=== PATIENT | female | born 2000 | race Caucasian/White ===

== ENCOUNTER 2019-04-24 00:43 | Outpatient (CLI) | payer MEDICAID ==
[~2019-04-24] VITALS: Ht 165.1 cm; Wt 82.7 kg
[2019-04-24] MEDS ORDERED: PREN1TAB60 PO (01:01)
[2019-04-24 01:18] VITALS: BP 132/77
== END 2019-04-24 01:20 | disposition home or self-care (01) ==
LOC: LDOP 00:43
PROVIDERS: ATTEND Obstetrics & Gynecology
DX: O62.9 Abnormality of forces of labor, unspecified (principal); Z3A.38 38 weeks gestation of pregnancy
CPT/HCPCS: 59025; 99201; G0463

== ENCOUNTER 2019-05-04 05:18 | Inpatient (IN) | payer MEDICAID ==
[~2019-05-04] VITALS: Ht 167.6 cm; Wt 83.0 kg
[~2019-05-04 05:18] MED LIST: PREN1TAB60 PO
[2019-05-04] MEDS ORDERED: OXYTOCIN 30U/ 0.9% NaCL 500ML 500 ML IV PRN (05:40)
[2019-05-04] MEDS ORDERED: D5%-LACTATED RINGERS 1,000 ML IV SCH (05:40)
[2019-05-04] MEDS ORDERED: OXYTOCIN 30U/ 0.9% NaCL 500ML 500 ML IV ONE (05:40)
[2019-05-04] MEDS ORDERED: MISOPROSTOL 25 MCG TABLET ONE (05:45)
[2019-05-04] MEDS ORDERED: OXYTOCIN 30U/ 0.9% NaCL 500ML 500 ML ONE ×3 (05:45→20:29)
[2019-05-04] MEDS ORDERED: FENTANYL PF 100 MCG/2ML IV PRN (06:00)
[2019-05-04] MEDS ORDERED: MISOPROSTOL 25 MCG TABLET VG PRN (06:00)
[2019-05-04] MEDS ORDERED: CALCIUM CARBONATE 500 MG TAB.CHEW PO PRN (06:00)
[2019-05-04] MEDS ORDERED: ONDANSETRON 2MG/ML, 2ML IVPush PRN (06:00)
[2019-05-04] MEDS ORDERED: TERBUTALINE 1 MG/ML, 1ML IVPush PRN (06:00)
[2019-05-04] MEDS ORDERED: TERBUTALINE 1 MG/ML, 1ML SQ PRN (06:00)
[2019-05-04] MEDS ORDERED: FENTANYL PF 100 MCG/2ML IVPush PRN (06:00)
[2019-05-04] MEDS: LACTATED RINGERS 1,000 ML IV SCH ×2 (06:13→12:25)
[2019-05-04] MEDS ORDERED: NEWBORN KIT ONE (06:22)
[2019-05-04 06:24] LABS: BASOPHILS # (AUTO) 0.04 x10^3/uL (0-0.3); BASOPHILS % (AUTO) 1 % (0-1); EOSINOPHILS # (AUTO) 0.07 x10^3/uL (0-0.8); EOSINOPHILS % (AUTO) 1 % (1-7); LYMPHOCYTES # (AUTO) 1.72 x10^3/uL (1-6.1); LYMPHOCYTES % (AUTO) 20 % (22-44); MD NO; MEAN CORPUSCULAR HEMOGLOBIN 30.3 pg (27.0-34.8); MEAN CORPUSCULAR HGB CONC 33.6 g/dL (32.4-35.8); MEAN CORPUSCULAR VOLUME 90.4 fL (80-100); MEAN PLATELET VOLUME 11.8 fL (7.4-10.4); MONOCYTES # (AUTO) 0.68 x10^3/uL (0-1.4); MONOCYTES % (AUTO) 8 % (2-9); NEUTROPHILS # (AUTO) 5.93 x10^3/uL (1.8-8.0); NEUTROPHILS % (AUTO) 70 % (42-75); PLATELET COUNT 158 x10^3/uL (130-400); RED BLOOD COUNT 3.92 x10^6/uL (3.82-5.3); RED CELL DISTRIBUTION WIDTH 13.2 % (9.6-15.2)
[2019-05-04] MEDS ORDERED: FENTANYL/BUPIV./NS/PF 250 ML EPIDCONT SCH ×2 (11:58→13:14)
[2019-05-04] MEDS ORDERED: LACTATED RINGERS 1,000 ML IVBOLUS PRN ×2 (12:00→13:30)
[2019-05-04] MEDS ORDERED: FENTANYL PF 100 MCG/2ML ONE (12:01)
[2019-05-04] MEDS ORDERED: EPHEDRINE 50 MG/ML, 1ML ONE (12:29)
[2019-05-04] MEDS ORDERED: TERBUTALINE 1 MG/ML, 1ML ONE (12:29)
[2019-05-04] MEDS ORDERED: FENTANYL PF 500 MCG, BUPIVACAINE/PF 0.5%, 30ML 62.5 ML in SODIUM CHLORIDE 0.9% 177.5 ML EPIDCONT SCH (12:30)
[2019-05-04] MEDS ORDERED: BUPIVACAINE 0.25% ONE (12:52)
[2019-05-04] MEDS ORDERED: LACTATED RINGERS 1,000 ML IV SCH (13:14)
[2019-05-04] MEDS ORDERED: EPHEDRINE 50 MG/ML, 1ML IVPush PRN (13:30)
[2019-05-04] MEDS: OXYTOCIN 30U/ 0.9% NaCL 500ML 500 ML IV SCH ×2 (19:07→20:39)
[2019-05-04] MEDS ORDERED: SIMETHICONE 80 MG CHEW TAB PO PRN (19:30)
[2019-05-04] MEDS ORDERED: ACETAMINOPHEN 325 MG TABLET PO PRN (19:30)
[2019-05-04] MEDS ORDERED: IBUPROFEN 600 MG TABLET PO PRN (19:30)
[2019-05-04] MEDS ORDERED: ONDANSETRON 2MG/ML, 2ML IV PRN (19:30)
[2019-05-04] MEDS ORDERED: DOCUSATE 100 MG CAPSULE PO PRN (19:30)
[2019-05-04] MEDS ORDERED: OXYcodone/APAP 5/325MG TABLET PO PRN ×2 (19:30)
[2019-05-04] MEDS ORDERED: MISOPROSTOL 200 MCG TABLET PR PRN (19:30)
[2019-05-04] MEDS ORDERED: IBUPROFEN 600 MG TABLET ONE (20:37)
[2019-05-04 21:35] VITALS: BP 139/76
[2019-05-05 01:30] VITALS: BP 111/68
[2019-05-05 04:25] VITALS: BP 110/69
[2019-05-05 06:18] LABS: MEAN CORPUSCULAR HEMOGLOBIN 30.5 pg (27.0-34.8); MEAN CORPUSCULAR HGB CONC 33.2 g/dL (32.4-35.8); MEAN CORPUSCULAR VOLUME 91.9 fL (80-100); MEAN PLATELET VOLUME 11.4 fL (7.4-10.4); PLATELET COUNT 161 x10^3/uL (130-400); RED BLOOD COUNT 3.72 x10^6/uL (3.82-5.3); RED CELL DISTRIBUTION WIDTH 13.3 % (9.6-15.2)
[2019-05-05 06:37] LABS: BASOPHILS # (AUTO) 0.02 x10^3/uL (0-0.3); BASOPHILS % (AUTO) 0 % (0-1); EOSINOPHILS # (AUTO) 0.05 x10^3/uL (0-0.8); EOSINOPHILS % (AUTO) 0 % (1-7); LYMPHOCYTES # (AUTO) 1.74 x10^3/uL (1-6.1); LYMPHOCYTES % (AUTO) 10 % (22-44); MD SCAN; MONOCYTES # (AUTO) 1.48 x10^3/uL (0-1.4); MONOCYTES % (AUTO) 9 % (2-9); NEUTROPHILS # (AUTO) 13.59 x10^3/uL (1.8-8.0); NEUTROPHILS % (AUTO) 81 % (42-75)
[2019-05-05 09:00] VITALS: BP 125/88
[2019-05-05] MEDS ORDERED: PRENATAL VIT/IRON/FA 1 EACH TABLET PO SCH (09:00)
[2019-05-05 11:58] VITALS: BP 109/67
[2019-05-05] MEDS ORDERED: DIPH,PERTUSS(ACELL),TET VAC/PF NC IM-VACC ONE ×3 (12:00→17:04)
[2019-05-05] MEDS ORDERED: IBUP-1222 PO (15:30)
== END 2019-05-05 19:40 | disposition home or self-care (01) | DRG 807 ==
LOC: LDIP 05:37 → 2NW 21:20
PROVIDERS: ADMIT Obstetrics & Gynecology; ATTEND Obstetrics & Gynecology
PROC: 10E0XZZ Delivery of Products of Conception, External Approach (ICD-10-PCS; principal; 2019-05-04)
PROC: 3E0R3BZ Introduction of Anesthetic Agent into Spinal Canal, Percutaneous Approach (ICD-10-PCS; 2019-05-04)
PROC: 00HU33Z Insertion of Infusion Device into Spinal Canal, Percutaneous Approach (ICD-10-PCS; 2019-05-04)
PROC: 0HQ9XZZ Repair Perineum Skin, External Approach (ICD-10-PCS; 2019-05-04)
PROC: 3E033VJ Introduction of Other Hormone into Peripheral Vein, Percutaneous Approach (ICD-10-PCS; 2019-05-04)
DX: O69.81X0 Labor and delivery complicated by cord around neck, without compression, not applicable or unspecified (principal); Z37.0 Single live birth; Z3A.39 39 weeks gestation of pregnancy; O70.0 First degree perineal laceration during delivery
CPT/HCPCS: 36415; 85025; 86592; 86850; 86900; 90715; G0378; J3010; J2590; J7120

== ENCOUNTER 2020-02-22 20:32 | Emergency (ER) | payer MEDICAID ==
[~2020-02-22] VITALS: Ht 167.6 cm; Wt 66.4 kg
[~2020-02-22 20:32] MED LIST changes: +IBUP-1222 PO
[2020-02-22] MEDS ORDERED: ONDANSETRON ODT 4 MG PO ONE (21:30)
--- NOTE | 2020-02-22 21:35 | NUR ---
PATIENT RESTING QUIETLY ON STRETCHER, NAD, NO NEEDS CURRENTLY, EDUCATED FORENSICS ANALYST FOOTE USE, WILL CONTINUE TO MONITOR.
[2020-02-22 21:46] LABS: BASOPHILS % (AUTO) 1 % (0-1); EOSINOPHILS % (AUTO) 4 % (1-7); LYMPHOCYTES % (AUTO) 29 % (22-44); MEAN CORPUSCULAR HEMOGLOBIN 29.5 pg (27.0-34.8); MEAN CORPUSCULAR HGB CONC 33.4 g/dL (32.4-35.8); MEAN PLATELET VOLUME 11.8 fL (7.4-10.4); MONOCYTES % (AUTO) 9 % (2-9); NEUTROPHILS % (AUTO) 57 % (42-75); PLATELET COUNT 152 x10^3/uL (130-400); RED BLOOD COUNT 4.05 x10^6/uL (3.82-5.3)
[2020-02-22 21:47] LABS: MD NO
[2020-02-22] MEDS ORDERED: ONDANSETRON ODT 4 MG ONE (21:49)
[2020-02-22 21:58] LABS: ALANINE AMINOTRANSFERASE 14 U/L (12-78); ALBUMIN 3.8 g/dL (3.4-5.0); ANION GAP 5 mmol/L (5-15); CALCIUM 8.7 mg/dL (8.5-10.1); CHLORIDE 110 mmol/L (98-107); CREATININE 0.82 mg/dL (0.55-1.02)
[2020-02-22 22:02] LABS: ALKALINE PHOSPHATASE 67 U/L (45-117); BILIRUBIN,TOTAL 0.4 mg/dL (0.2-1.0); TOTAL PROTEIN 6.3 g/dL (6.4-8.2)
--- NOTE | 2020-02-22 22:30 | NUR ---
PATIENT TO US, REMINDED THAT URINE SAMPLE IS NEEDED.
--- NOTE | 2020-02-22 22:59 | NUR ---
PATIENT RETURNED FROM US, REMINDED THAT URINE SAMPLE IS NEEDED, NO NEEDS AT THIS TIME, WILL CONTINUE TO MONITOR.
[2020-02-22 23:19] VITALS: BP 114/65
--- NOTE | 2020-02-22 23:22 | NUR ---
PATIENT AMBULATORY UPON DISCHARGE FROM DEPARTMENT, RETURNED APPROPRIATE INFORMATION POST DISCHARGE, MEDICATION AND FOLLOW UP TEACHING.
== END 2020-02-22 23:25 | disposition home or self-care (01) ==
LOC: ED 21:18
DX: N93.8 Other specified abnormal uterine and vaginal bleeding (principal); N92.4 Excessive bleeding in the premenopausal period
CPT/HCPCS: 36415; 76830; 80053; 84703; 85025; 99284; Q0162